=== PATIENT | male | born 1995 | race Caucasian/White ===

== ENCOUNTER 2016-10-06 14:42 | Emergency (ER) | payer OTHER ==
--- NOTE | 2016-10-06 15:00 | CPEKG ---
Heart Rate: 74 RR Interval: 811 P-R Interval: 136 QRSD Interval: 92 QT Interval: 376 QTC Interval: 418 P [place]: 58 QRS [place]: 56 T Wave [place]: 52 EKG Severity - NORMAL ECG - EKG Impression: SINUS RHYTHM Electronically Signed By: Horace Garcia 06-Oct-2016 15:16:20
--- NOTE | 2016-10-06 15:14 | EDPHY ---
H & P Stated Complaint: syncopal episode with fall, possible extra vyvance dose Time Seen by Provider: 10/06/16 15:01 HPI/ROS: CHIEF COMPLAINT: Syncope HISTORY OF PRESENT ILLNESS: The patient is a 21-year-old man with a history of anxiety and ADD who states that he has been playing video games all day for the last 3 days to try and when a contest. He has only gone 2-3 hours of sleep. He took extra Vyvanse this morning. A single extra dose. He has not been eating or drinking much. He states that he stood up from his couch and felt lightheaded and then collapsed. He was unconscious for few seconds. He was not incontinent. He did not have any seizure-like activity. When EMS arrived his vital signs are stable. He states that this has happened to him before when he had kept his legs locked for a long time. He denies any chest pain or palpitations. He denies headache. Denies neck pain. REVIEW OF SYSTEMS: Constitutional: denies: chills, fever, recent illness, recent injury EENTM: denies: blurred vision, double vision, nose congestion Respiratory: denies: cough, shortness of breath Cardiac: see HPI Gastrointestinal/Abdominal: denies: abdominal pain, diarrhea, nausea, vomiting, blood streaked stools Genitourinary: denies: dysuria, frequency, hematuria, pain Musculoskeletal: denies: joint pain, muscle pain Skin: denies: lesions, rash, jaundice, bruising Neurological: denies: headache, numbness, paresthesia, tingling, dizziness, weakness Hematologic/Lymphatic: denies: blood clots, easy bleeding, easy bruising Immunologic/allergic: denies: HIV/AIDS, transplant EXAM: GENERAL: Well-appearing, well-nourished and in no acute distress. HEAD: Atraumatic, normocephalic. Not very minor abrasions to right Forehead. EYES: Pupils equal round and reactive to light, extraocular movements intact, sclera anicteric, conjunctiva are normal. ENT: TMs normal, nares patent, oropharynx clear without exudates. Moist mucous membranes. NECK: Normal range of motion, supple without lymphadenopathy or JVD. LUNGS: Breath sounds clear to auscultation bilaterally and equal. No wheezes rales or rhonchi. HEART: Regular rate and rhythm without murmurs, rubs or gallops. ABDOMEN: Soft, nontender, normoactive bowel sounds. No guarding, no rebound. No masses appreciated. BACK: No CVA tenderness, no spinal tenderness, step-offs or deformities EXTREMITIES: Normal range of motion, no pitting or edema. No clubbing or cyanosis. NEUROLOGICAL: Cranial nerves II through XII grossly intact. Normal speech, normal gait. 5/5 strength, normal movement in all extremities, normal sensation PSYCH: Normal mood, normal affect. SKIN: Warm, dry, normal turgor, no visible rashes or lesions. Source: Patient Exam Limitations: No limitations - Personal History Current Tetanus/Diphtheria Vaccine: Yes Current Tetanus Diphtheria and Acellular Pertussis (TDAP): Yes Tetanus Vaccine Date: < 10 years - Medical/Surgical History Hx Asthma: No Hx Chronic Respiratory Disease: No Hx Diabetes: No Hx Cardiac Disease: No Hx Renal Disease: No Hx Cirrhosis: No Hx Alcoholism: No Hx HIV/AIDS: No Hx Splenectomy or Spleen Trauma: No Other PMH: anxiety, ADHD, insomnia - Family History Significant Family History: No pertinent family hx - Social History Smoking Status: Never smoked Alcohol Use: Occasionally Drug Use: Marijuana Constitutional: Initial Vital Signs Temperature (C) 36.8 C 10/06/16 14:42 Heart Rate 90 10/06/16 14:42 Respiratory Rate 20 10/06/16 14:42 Blood Pressure 129/86 H 10/06/16 14:42 O2 Sat (%) 95 10/06/16 14:42 O2 Delivery Mode Room Air Allergies/Adverse Reactions: No Known Allergies Allergy (Unverified 10/06/16 14:50) Home Medications: Medication Instructions Recorded VYVANSE 10/06/16 hydrOXYzine HCL 10/06/16 Medical Decision Making - Diagnostics EKG Interpretation: An EKG obtained and was read and documented in trace view. Please see trace view for full reading and report. Sinus rhythm, no acute ischemic changes ED Course/Re-evaluation: The patient's lab work and EKG are reassuring. I suspect this was a vagal vasal episode in the setting of poor hydration and nutrition and sitting and lying on his couch prolonged periods right before standing up. The patient feels reassured. We discussed future self care and indications for returning to the emergency department. Differential Diagnosis: Partial list of the Differential diagnosis considered include but were not limited to; anxiety,vasovagal, arrhythmia, anemia and although unlikely based on the history and physical exam, I also considered head injury, seizure, TIA, intracranial mass. I discussed these differential diagnoses and the plan with the patient as well as the usual and expected course. The patient understands that the diagnosis is provisional and that in medicine we are not always correct and that further workup is often warranted. Usual and customary warnings were given. All of the patient's questions were answered. The patient was instructed to return to the emergency department should the symptoms at all worsen or return, otherwise to followup with the physician as we discussed. - Data Points Laboratory Results: Laboratory Results 10/06/16 14:50 10/06/16 14:50 10/06/16 10/06/16 14:50 14:50 WBC 5.53 10^3/uL 10^3/uL (3.80-9.50) RBC 5.56 10^6/uL 10^6/uL (4.40-6.38) Hgb 16.1 g/dL g/dL (13.7-17.5) Hct 45.2 % % (40.0-51.0) MCV 81.3 fL L fL (81.5-99.8) MCH 29.0 pg pg (27.9-34.1) MCHC 35.6 g/dL g/dL (32.4-36.7) RDW 11.5 % % (11.5-15.2) Plt Count 274 10^3/uL 10^3/uL (150-400) MPV 9.8 fL fL (8.7-11.7) Neut % (Auto) 47.3 % % (39.3-74.2) Lymph % (Auto) 39.8 % % (15.0-45.0) [place] % (Auto) 8.5 % % (4.5-13.0) Eos % (Auto) 2.9 % % (0.6-7.6) Baso % (Auto) 1.3 % % (0.3-1.7) Nucleat RBC Rel Count 0.0 % % (0.0-0.2) Absolute Neuts (auto) 2.62 10^3/uL 10^3/uL (1.70-6.50) Absolute Lymphs (auto) 2.20 10^3/uL 10^3/uL (1.00-3.00) Absolute Monos (auto) 0.47 10^3/uL 10^3/uL (0.30-0.80) Absolute Eos (auto) 0.16 10^3/uL 10^3/uL (0.03-0.40) Absolute Basos (auto) 0.07 10^3/uL 10^3/uL (0.02-0.10) Absolute Nucleated RBC 0.00 10^3/uL 10^3/uL (0-0.01) Immature Gran % 0.2 % % (0.0-1.1) Immature Gran # 0.01 10^3/uL 10^3/uL (0.00-0.10) Sodium 139 mEq/L mEq/L (134-144) Potassium 4.0 mEq/L mEq/L (3.5-5.2) Chloride 101 mEq/L mEq/L (97-110) Carbon Dioxide 27 mEq/l mEq/l (22-31) Anion Gap 11 mEq/L mEq/L (8-16) BUN 15 mg/dL mg/dL (7-23) Creatinine 0.9 mg/dL mg/dL (0.7-1.3) Estimated GFR > 60 Glucose 103 mg/dL H mg/dL (70-100) Calcium 10.0 mg/dL mg/dL (8.5-10.4) Departure - Departure Disposition: Home, Routine, Self-Care Clinical Impression: Syncope Qualifiers: Syncope type: vasovagal syncope Qualified Code(s): R55 - Syncope and collapse Condition: Fair Instructions: Syncope (ED) Referrals: Patient,NotPresent [Unknown] - As per Instructions Bowen Gonzalez MD [[facility] [place] Primary Care Provider] - As per Instructions
[2016-10-06 15:15] LABS: % IMMATURE GRANULYOCYTES 0.2 % (0.0-1.1); ABSOLUTE IMMATURE GRANULOCYTES 0.01 10^3/uL (0.00-0.10); ADD DIFF? NO; ADD MORPH? NO; ADD SCAN? NO; ATYPICAL LYMPHOCYTE FLAG 0 (0-99); FRAGMENT RBC FLAG 0 (0-99); HEMATOCRIT 45.2 % (40.0-51.0); HEMOGLOBIN 16.1 g/dL (13.7-17.5); LEFT SHIFT FLG 0 (0-99); LIPEMIA HEMOLYSIS FLAG 90 (0-99); MEAN CELL HEMOGLOBIN CONCENTR. 35.6 g/dL (32.4-36.7); MEAN CELL VOLUME 81.3 fL (81.5-99.8); MEAN PLATELET VOLUME 9.8 fL (8.7-11.7); PLATELET CLUMPS FLAG 0 (0-99); PLATELET COUNT 274 10^3/uL (150-400); RED BLOOD CELL COUNT 5.56 10^6/uL (4.40-6.38); RED CELL DISTRIBUTION WIDTH 11.5 % (11.5-15.2)
[2016-10-06 15:22] LABS: ANION GAP 11 mEq/L (8-16); CARBON DIOXIDE 27 mEq/l (22-31); CHLORIDE 101 mEq/L (97-110); CREATININE 0.9 mg/dL (0.7-1.3); GLOMERULAR FILTRATION RATE > 60; GLUCOSE 103 mg/dL (70-100); SODIUM 139 mEq/L (134-144)
[2016-10-06 16:03] VITALS: BP 123/61; PULSE 73; RESP 14; TEMP 97.2; O2SAT 98
== END 2016-10-06 16:03 | disposition home or self-care (01) ==
DX: R55 Syncope and collapse (principal)